=== PATIENT | male | born 1965 | race Caucasian/White ===

== ENCOUNTER 2020-12-01 13:26 | Inpatient (IN) | payer OTHER ==
[~2020-12-01] VITALS: Ht 172.7 cm; Wt 100.9 kg
--- NOTE | ~2020-12-01 | EMS ---
[facility] [address] [place] [address] EMS Patient Care Report Name: DARELL KNIGHT Room #: REG FARTUN Marcum#: [id number] Admission: 12/01/20 Attend Phys: Discharge: Date of : 63 Report #: [id number] THIS REPORT FOR: //name// Report Transmitted: 12/01/2020 20:47 EMS Care Summary [facility] MED-ACT Incident [id number] @ 12/01/2020 12:35 Incident Location [address] [address] Patient DARELL KNIGHT Male, 55 Years 1965 Patient Address [address] [place] [address] [place] [address] Patient History Chronic Obstructive Pulmonary Disease (COPD),Diabetes,Atrial Fibrillation,Novel Coronavirus (COVID-19), Patient Allergies No known allergies, Patient Medications Insulin, Apixaban, Metformin, Amiodarone, Acetaminophen, Glucagon, Ascorbic Acid, Chief Complaint Hypoxia Disposition Transported No Lights/[place] Dispatch Reason Sick Person Transported To [facility] Narrative Dispatched to C1 Sick Ill Subject. Upon our arrival, patient was noted laying [facility] [address] [place] [address] EMS Patient Care Report Name: DARELL KNIGHT Room #: REG FARTUN Marcum#: [id number] Admission: 12/01/20 Attend Phys: Discharge: Date of : 63 Report #: [id number] in Semi-Fowlers in facility bed. Patient is a trach patient on a vent. He is alert, but is unable to speak, so it's unknown his orientation. He is looking at EMS and facility staff. Patient is on a vent and RT reports that the rate is set to 30. Patient looks pale and is normal to the touch and dry. Patient has no radials, but also has a lot of peripheral edema. Patient has a strong carotid. Staff report: Patient has a history of COPD and ARDS prior to Covid. Patient had a trach and was on a vent while in the hospital at [place]. He was then sent to this facility after being discharged from the hospital. Patient would decompensate in the hospital, but would always stabilize. Staff reported that they tried to do different treatment yesterday and the doctor altered some medications, but it didn't help. Staff reports that he started to decompensate again this morning and every time they move him, "he starts to crash." When asked what that meant, she responded that, "he just crashes." Staff reported that they wanted him sent out in order to receive a higher level of care. They also report patient has MRSA. It wasn't until later at the hospital that of patient reported to road freight firer that they took his trach out and that's why he decompensated. Physical and PMH obtained and as documented. Patient is moved via total lift from facility bed to cot. Vent settings are written down in order to be given to the hospital staff. Patient is moved very carefully due to his chest tube, and him still being connected to the vent. Once he is moved, vitals are obtained. Vent is taken off and it is replaced with an ETCO2 filter line and BVM. Patient is bagged at an elevated rate due to a high CO2 and his respiratory rate being 30 on the vent. Patient is secured with straps plus rails. Cot wheeled to ambulance and secured. Well Logger and rider are taken from S47. Prior to departure, another full set of vitals are obtained. It is discussed amongst EMS personnel if we want to have even more personnel, but due to stable vitals and patient maintaining a consistent SPO2, transport is decided as the next step. Patient becomes more lethargic. Pads are applied as a precaution. Patient maintains a strong carotid. He also maintains a corneal reflex throughout the call and can answer most yes or no questions. During transport, patient reports that he does have pain and when asked if he has chest pain he shakes his head yes. When asked if it is new, he also shakes his head yes. 12 Lead performed. Patient's blood pressure drops compared to the reading at the facility. Patient has a CICC placed and due to EMS not being familiar with the IV ports and patient having inadequate vascular access, fluid resuscitation is withheld. [facility] contacted via radio. Cot wheeled to ER Room 8 where patient is moved via total lift. Report given to two RN's and signatures obtained due to patient not having any motor tone. Initial Vitals @12:54P: 79,SpO2: 80, @12:47P: 78,BP: 101/65,SpO2: 91, @13:14P: 82,EtCO2: 44,SpO2: 79, @13:09P: 81,BP: 91/57,EtCO2: 43,SpO2: 83, [facility] [address] [place] [address] EMS Patient Care Report Name: DARELL KNIGHT Room #: REG FARTUN Marcum#: [id number] Admission: 09/23/21 Attend Phys: Discharge: Date of : 63 Report #: [id number] @13:13P: 81,EtCO2: 47,SpO2: 79,WI Suspected: false @12:55P: 79,EtCO2: 48,SpO2: 66, @13:01P: 78,R: 24,EtCO2: 50,SpO2: 75, @12:59P: 75,R: 22,EtCO2: 56,SpO2: 75, @13:06P: 83,R: 30,BP: 84/53,EtCO2: 45,SpO2: 83, @13:14R: 29,BP: 92/51,EtCO2: 41,SpO2: 79, @13:15P: 81,R: 30,EtCO2: 46,SpO2: 79, @13:03P: 83,R: 22,EtCO2: 51,SpO2: 78, @13:05P: 86,R: 21,Pain: 4/10,Temp: 98.9F,EtCO2: 47,SpO2: 78, Impression Respiratory Failure Procedures @13:1312-Lead ECGResponse: UnchangedSucceeded@12:45Surgical Mask on Patient Timeline 12:32,Call Received 12:32,Psap Call 12:35,Dispatched 12:35,En Route 12:41,On Scene 12:44,At Patient 12:45,Surgical Mask on Patient, 12:47,BP: 101/65 M,PULSE: 78,RR: R,SPO2: 91 Ox,ETCO2: ,BG: ,PAIN: ,GCS: , 12:54,BP: / M,PULSE: 79,RR: R,SPO2: 80 Ox,ETCO2: ,BG: ,PAIN: ,GCS: , 12:55,BP: / M,PULSE: 79,RR: R,SPO2: 66 Ox,ETCO2: 48 ,BG: ,PAIN: ,GCS: , 12:59,BP: / M,PULSE: 75,RR: 22 R,SPO2: 75 Ox,ETCO2: 56 ,BG: ,PAIN: ,GCS: , 13:01,BP: / M,PULSE: 78,RR: 24 R,SPO2: 75 Ox,ETCO2: 50 ,BG: ,PAIN: ,GCS: , 13:03,BP: / M,PULSE: 83,RR: 22 R,SPO2: 78 Ox,ETCO2: 51 ,BG: ,PAIN: ,GCS: , 13:05,BP: / M,PULSE: 86,RR: 21 R,SPO2: 78 Ox,ETCO2: 47 ,BG: ,PAIN: 4,GCS: , 13:06,Depart Scene 13:06,BP: 84/53 M,PULSE: 83,RR: 30 R,SPO2: 83 Ox,ETCO2: 45 ,BG: ,PAIN: ,GCS: , 13:09,BP: 91/57 M,PULSE: 81,RR: R,SPO2: 83 Ox,ETCO2: 43 ,BG: ,PAIN: ,GCS: , 13:13,12-Lead ECG,Response: UnchangedSucceeded, 13:13,BP: / M,PULSE: 81,RR: R,SPO2: 79 Ox,ETCO2: 47 ,BG: ,PAIN: ,GCS: , 13:14,BP: / M,PULSE: 82,RR: R,SPO2: 79 Ox,ETCO2: 44 ,BG: ,PAIN: ,GCS: , 13:14,BP: 92/51 M,PULSE: ,RR: 29 R,SPO2: 79 Ox,ETCO2: 41 ,BG: ,PAIN: ,GCS: , 13:15,At Destination 13:15,BP: / M,PULSE: 81,RR: 30 R,SPO2: 79 Ox,ETCO2: 46 ,BG: ,PAIN: ,GCS: , 13:38,Call Closed Disclaimer v1.1 Copyright 2020 [employer] This EMS Care Summary contains data elements from the applicable legal record [address] [address] EMS Patient Care Report Name: DARELL KNIGHT Room #: REG FARTUN Marcum#: [id number] Admission: 12/01/20 Attend Phys: Discharge: Date of : 63 Report #: [id number] (which may be displayed differently). It is designed to provide pertinent information for the following purposes: continuity of care, clinical quality, and state data reporting. The complete legal record is available to ED staff and administrators of the receiving hospital in [facility]'s Patient Tracker. All data is provided "as is."
[~2020-12-01 13:26] MED LIST: ACETYLCYST200 MG/1 M INH; ADVAIR 100-501 EACH INH; ANORO ELLIPTA1 EACH INH; DILTIAZEM ER180 M2 PO; ELIQUIS5 MG PO; HUMALOG100 UNIT/1 SUBQ; HYDROCODON-ACE1 EAC7 PO; JANUMET 50-1,01 EACH PO; LANTUS SUBQ; LISINOPRIL-HCT1 EACH PO; LOPRESSOR50 PERTUBE; OMEPRAZOLE 20 M20 M1 PO; PACERONE 200 M200 M1 PERTUBE; PROSCAR 5MG TABL5 MG PO; ROXICODONE5 M2 PO; SINGULAIR 10 MG10 M1 PO; VITAMIN C1000 MG PO; XARELTO20 MG PO
[2020-12-01 13:28] VITALS: BP 97/50
[2020-12-01 14:26] LABS: BE(vivo) 3.3 mmol/L (-2 to +3); HCO3 31.6 mmol/L (22.0-26.0); PO2 75.2 mmHg (80.0-100.0); sO2 92.7 % (92.0-98.0)
[2020-12-01 14:27] LABS: PCO2 70.2 mmHg (35.0-45.0); pH 7.271 (7.360-7.450)
[2020-12-01 15:24] LABS: ABSOLUTE NEUTROPHILS 7.3 thou/uL (1.4-8.2); BASOPHILS 0.1 % (0.0-2.0); HEMATOCRIT 27.1 % (42.0-52.0); HEMOGLOBIN 9.1 gm/dL (14.0-18.0); LYMPHOCYTES 1.6 % (24.0-44.0); MCHC 33.6 g/dL (28.0-37.0); MCV 89.4 fL (80.0-100.0); MONOCYTES 8.9 % (1.0-8.0); PLATELET COUNT 200 thou/uL (150-400); POLYS 89.4 % (36.0-66.0); RBC 3.03 mil/uL (4.50-6.00); RDW 17.3 % (10.5-14.5); WBC 8.2 thou/uL (4.0-11.0)
[2020-12-01 15:43] LABS: ALBUMIN 1.8 g/dL (3.4-5.0); CALCIUM 8.5 mg/dL (8.5-10.1); CREATININE 0.6 mg/dL (0.7-1.3); TOTAL BILIRUBIN 0.3 mg/dL (0.2-1.0); TOTAL PROTEIN 6.3 g/dL (6.4-8.2)
[2020-12-01 15:46] LABS: POTASSIUM 6.3 mmol/L (3.5-5.1)
[2020-12-01 17:25] LABS: URINE BILIRUBIN NEGATIVE (Negative); URINE BLOOD TRACE (Negative); URINE CLARITY CLOUDY; URINE COLOR YELLOW; URINE GLUCOSE-RANDOM* NEGATIVE (Negative); URINE KETONES TRACE (Negative); URINE LEUKOCYTES-REFLEX TRACE (Negative); URINE NITRITE-REFLEX NEGATIVE (Negative); URINE PROTEIN (DIPSTICK) 1+ (Negative); URINE SPECIFIC GRAVITY >= 1.030 (1.005-1.035); URINE UROBILINOGEN 0.2 E.U./dl (0.2-1.0)
[2020-12-01 17:51] LABS: SQUAMOUS 0-3 Few /LPF (0-3)
[2020-12-01 17:52] LABS: BACTERIA-REFLEX >30 Many /HPF (None Seen); CALCIUM OXALATE >10 Many /LPF (None Seen); URINE RBC 3-10 Few /HPF (NONE SEEN); URINE WBC-REFLEX 0-5 Rare /HPF (0-5); YEAST-REFLEX Present (None Seen)
[2020-12-01 23:29] VITALS: BP 102/50
[2020-12-01 23:56] VITALS: BP 102/50
[2020-12-02] VITALS (98 sets, daily range): BP systolic 46–244; BP diastolic 17–216
[2020-12-02 01:36] LABS: HEMATOCRIT 27.8 % (42.0-52.0); HEMOGLOBIN 8.7 gm/dL (14.0-18.0); MCH 28.6 pg (26.0-34.0); MCHC 31.5 g/dL (28.0-37.0); MCV 90.7 fL (80.0-100.0); RBC 3.06 mil/uL (4.50-6.00); RDW 17.9 % (10.5-14.5); WBC 16.2 thou/uL (4.0-11.0)
[2020-12-02 01:38] LABS: BE(vivo) -6.9 mmol/L (-2 to +3); HCO3 22.6 mmol/L (22.0-26.0); sO2 82.6 % (92.0-98.0)
[2020-12-02 01:39] LABS: PCO2 68.1 mmHg (35.0-45.0); pH 7.138 (7.360-7.450)
[2020-12-02 02:09] LABS: ALBUMIN 1.7 g/dL (3.4-5.0); CALCIUM 8.4 mg/dL (8.5-10.1); CREATININE 1.1 mg/dL (0.7-1.3); TOTAL BILIRUBIN 0.3 mg/dL (0.2-1.0); TOTAL PROTEIN 6.5 g/dL (6.4-8.2)
[2020-12-02 02:10] LABS: POTASSIUM 7.2 mmol/L (3.5-5.1)
--- NOTE | 2020-12-02 02:42 | NUR ---
SHORTLY AFTER PATIENT BROUGHT TO THE UNIT HE STARTED DEVELOPING HYPOXIA. TRACH POSSIBLY DISLODGED WHEN PATIENT TRANSFERRED TO BED FROM ER CART AND TURNED TO REMOVE BEDDING AND ASSESS PATIENTS POSTERIOR. RAPID RESPONSE INITIATED DUE TO POSSIBLE OBSTRUCTION AND INABILITY TO SUCTION OR PROPERLY VENTILATE PATIENT. VERY SHORTLY AFTER RAPID RESPONSE CALLED PATIENT STARTED TURNING BLUE AND SEVER BRADYCARDIA NOTED. CODE BLUE ACTIVATED DUE TO PATIENT NOT BREATHING.
[2020-12-02 03:06] LABS: BE(vivo) -0.7 mmol/L (-2 to +3); PO2 65.9 mmHg (80.0-100.0); sO2 90.9 % (92.0-98.0)
[2020-12-02 03:08] LABS: pH 7.308 (7.360-7.450)
[2020-12-02 04:50] LABS: HEMATOCRIT 25.8 % (42.0-52.0); HEMOGLOBIN 8.3 gm/dL (14.0-18.0); MCH 29.3 pg (26.0-34.0); MCHC 32.4 g/dL (28.0-37.0); MCV 90.7 fL (80.0-100.0); PLATELET COUNT 315 thou/uL (150-400); RBC 2.84 mil/uL (4.50-6.00); WBC 18.4 thou/uL (4.0-11.0)
[2020-12-02 05:39] LABS: ALBUMIN 1.6 g/dL (3.4-5.0); CREATININE 0.9 mg/dL (0.7-1.3); TOTAL BILIRUBIN 0.5 mg/dL (0.2-1.0); TOTAL PROTEIN 6.2 g/dL (6.4-8.2)
[2020-12-02 05:46] LABS: POTASSIUM 6.9 mmol/L (3.5-5.1)
[2020-12-02 06:20] LABS: ABSOLUTE NEUTROPHILS 17.7 thou/uL (1.4-8.2); ANISOCYTOSIS 1+; PLATELET ESTIMATE NORMAL; POIKILOCYTOSIS 1+
--- NOTE | 2020-12-02 07:25 | NUR ---
ORDER FOR EVAL AND TREAT HOWEVER Pt CODED LAST NIGHT. WILL PLACE ON HOLD AND AWAIT NEW ORDERS WHEN APPROPRIATE
--- NOTE | 2020-12-02 07:25 | NUR ---
ELECTRIC FURNACE OPERATOR called at 0105 for decreased O2 sats, immediately changed to a code blue. See code sheet.
--- NOTE | 2020-12-02 07:32 | EKG ---
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
--- NOTE | 2020-12-02 09:40 | NUR ---
When able to resume enteral nutrition via PEG, recommend vital HP at 60ml/hr. If water flushes started, add 1 packet beneprotein in 240ml water every 6hr
--- NOTE | 2020-12-02 10:52 | NUR ---
Spoke to Olena Shook, patient's , and updated on patient condition. Patient is to go to surgery this afternoon.
[2020-12-02 11:35] LABS: BE(vivo) 2.8 mmol/L (-2 to +3); HCO3 26.6 mmol/L (22.0-26.0); pH 7.474 (7.360-7.450); sO2 97.8 % (92.0-98.0)
[2020-12-02 12:11] LABS: CALCIUM 7.8 mg/dL (8.5-10.1)
[2020-12-02 12:25] LABS: POTASSIUM 6.1 mmol/L (3.5-5.1)
--- NOTE | 2020-12-02 14:10 | NUR ---
Patient sent to OR via cart and vent. Bedside report given to anesthesia and RN. Patient's at bedside at the time patient was taken back.
--- NOTE | 2020-12-02 14:30 | NUR ---
Chart review. Discussed during am unit rounds and los. He from [facility], prior to that he was at [facility] and then before that at home wit rigo, [facility], # [phone]. He has trach/peg and wound. going to or today. Cm called to talk with rigo and she wanted to meet. cm spoke with her, education on dcp. He will not be going back to [facility], you have time to get him to [facility] or he will come home and will get equip and care in the home for him. told him not to drive to [place] to see his dad who was dying from covid because he has copd and not vaccinated and would get sick. his dad and reza came back, got pulled over in [place] while driving to the hospital and ambulance ended taking him to [facility]. only been at [facility] for 6 days and will not be going back per rigo. referral sent to [facility].
--- NOTE | 2020-12-02 15:26 | NUR ---
Patient's rigo updated on patient condition s/p surgery
--- NOTE | 2020-12-02 16:12 | NUR ---
Spoke to Dr. Youssef re: clogged PEG tube. Was able to flush PEG, with some difficulty prior to patient going to surgery, however, have not been able to do so since he came back. Urine output decreased again, 1L order per Dr. Youssef.
[2020-12-02 17:50] LABS: ABSOLUTE NEUTROPHILS 3.7 thou/uL (1.4-8.2); BASOPHILS 0.1 % (0.0-2.0); LYMPHOCYTES 5.3 % (24.0-44.0); MCH 29.2 pg (26.0-34.0); MCV 88.5 fL (80.0-100.0); MONOCYTES 5.2 % (1.0-8.0); POLYS 89.4 % (36.0-66.0); RDW 17.3 % (10.5-14.5); WBC 4.2 thou/uL (4.0-11.0)
[2020-12-02 17:54] LABS: HEMATOCRIT 19.5 % (42.0-52.0); HEMOGLOBIN 6.4 gm/dL (14.0-18.0)
[2020-12-02 17:55] LABS: PLATELET COUNT 125 thou/uL (150-400)
[2020-12-02 18:02] LABS: CALCIUM 7.8 mg/dL (8.5-10.1); POTASSIUM 5.8 mmol/L (3.5-5.1)
[2020-12-02 18:08] LABS: ALBUMIN 1.4 g/dL (3.4-5.0); TOTAL BILIRUBIN 0.4 mg/dL (0.2-1.0); TOTAL PROTEIN 5.6 g/dL (6.4-8.2)
--- NOTE | 2020-12-02 19:00 | NUR ---
Patient's Olena updated on patient condition and blood consent obtained via phone.
--- NOTE | 2020-12-02 23:42 | NUR ---
Patient had an episode of desaturation down to the 50's. Patients blood pressure extremely sensitive and has been fluctuating immensely. RN discussed with respiratory and Dr. Murillo multiple times. Patient started on Dopamine and vasopressin. Increased PEEP. After bagging and waiting out, patient seemed to recover. RN called , Olena Shook to discuss event. RN will continue to monitor.
[2020-12-03] VITALS (90 sets, daily range): BP systolic 67–154; BP diastolic 36–86
[2020-12-03 04:56] LABS: ABSOLUTE NEUTROPHILS 8.2 thou/uL (1.4-8.2); BASOPHILS 0.1 % (0.0-2.0); HEMATOCRIT 23.2 % (42.0-52.0); HEMOGLOBIN 7.8 gm/dL (14.0-18.0); LYMPHOCYTES 2.6 % (24.0-44.0); MCH 30.3 pg (26.0-34.0); MCHC 33.9 g/dL (28.0-37.0); MCV 89.6 fL (80.0-100.0); MONOCYTES 5.9 % (1.0-8.0); PLATELET COUNT 193 thou/uL (150-400); POLYS 91.4 % (36.0-66.0); RBC 2.59 mil/uL (4.50-6.00); RDW 16.8 % (10.5-14.5); WBC 8.9 thou/uL (4.0-11.0)
[2020-12-03 05:17] LABS: CALCIUM 7.3 mg/dL (8.5-10.1); MAGNESIUM 2.1 mg/dL (1.8-2.4); POTASSIUM 5.7 mmol/L (3.5-5.1)
--- NOTE | 2020-12-03 06:19 | NUR ---
This RN spoke with Olena, at 0600 regarding patient status. Updated on treatment and condition.
[2020-12-03 11:53] LABS: BE(vivo) -5.4 mmol/L (-2 to +3); HCO3 20.8 mmol/L (22.0-26.0); PCO2 43.5 mmHg (35.0-45.0); PO2 79.2 mmHg (80.0-100.0); pH 7.297 (7.360-7.450); sO2 94.5 % (92.0-98.0)
--- NOTE | 2020-12-03 19:33 | NUR ---
Patient's at bedside most of the day. Was able to speak to Dr. Figueroa when he came in. Dr. Figueroa was able to unclog PEG tube and tube feeds were started. Also looked at trach and notified of increased water to bivona cuff due to leak. He was ok with adding more water to balloon as needed. Chest tube to stay in at this time. Dr. Murillo notified of decreasing urine output this afternoon. Order for x1 Lasix received and given.
--- NOTE | 2020-12-03 20:37 | NUR ---
ASSUMED CARE OF PATIENT AT 1899. DISCUSSED PAIN MANAGEMEN OPTIONS, WELL HIS DESIRE TO KNOW WHAT MEDICATIONS HE IS RECIEVING, AND WHEN. HE ALSO REQUESTED TO FACETIME WITH . THIS RN CALLED A 2037, DISCUSSING PAIN MANAGEMENT OPTIONS WELL. ONE TIME ORDER RECIEVED FOR TORADOL. WILL CONTINUE TO MONITOR FOR OPTIMAL PAIN MANAGEMENT.
[2020-12-04] VITALS (96 sets, daily range): BP systolic 61–165; BP diastolic 33–81
[2020-12-04 03:08] LABS: BE(vivo) -9.5 mmol/L (-2 to +3); HCO3 19.2 mmol/L (22.0-26.0); PCO2 56.4 mmHg (35.0-45.0); PO2 75.5 mmHg (80.0-100.0); sO2 90.6 % (92.0-98.0)
[2020-12-04 03:09] LABS: pH 7.151 (7.360-7.450)
[2020-12-04 03:28] LABS: HEMOGLOBIN 8.5 gm/dL (14.0-18.0); MCH 28.9 pg (26.0-34.0); MCHC 31.3 g/dL (28.0-37.0); MCV 92.1 fL (80.0-100.0); RBC 2.93 mil/uL (4.50-6.00); RDW 17.1 % (10.5-14.5); WBC 19.5 thou/uL (4.0-11.0)
[2020-12-04 03:39] LABS: ALBUMIN 1.7 g/dL (3.4-5.0); CALCIUM 8.1 mg/dL (8.5-10.1); CREATININE 1.2 mg/dL (0.7-1.3); PLATELET COUNT 309 thou/uL (150-400); POTASSIUM 5.8 mmol/L (3.5-5.1); TOTAL BILIRUBIN 0.3 mg/dL (0.2-1.0); TOTAL PROTEIN 5.3 g/dL (6.4-8.2)
[2020-12-04 05:35] LABS: BE(vivo) -7.8 mmol/L (-2 to +3); HCO3 18.9 mmol/L (22.0-26.0); PCO2 43.5 mmHg (35.0-45.0); PO2 68.1 mmHg (80.0-100.0); pH 7.256 (7.360-7.450); sO2 90.8 % (92.0-98.0)
[2020-12-04 06:37] LABS: ABSOLUTE NEUTROPHILS 18.5 thou/uL (1.4-8.2); ANISOCYTOSIS 1+
--- NOTE | 2020-12-04 09:31 | HC ---
[facility] [place] [address] CONSULTATION Name: DARELL KNIGHT Room #: 239-P ADM IN M.R.#: [id number] Admission: 12/02/20 Attend Phys: Regis Youssef MD Discharge: Date of : 63 Report #: [id number] THIS REPORT FOR: cc: YUMIKO - Coby family physician/PCP YUMIKO - No family physician/PCP Tate Woods MD ~ DATE OF SERVICE: 12/03/2020 WOUND CARE CONSULTATION NOTE REASON FOR CONSULTATION: Sacral stage IV pressure sore in a patient with respiratory failure with tracheostomy, on ventilator secondary to COVID-19 pneumonia; diabetes mellitus type 2 and severe protein-calorie malnutrition. HISTORY OF PRESENT ILLNESS: The patient is a 55-year-old gentleman who has been severely ill with COVID-19 pneumonia. He has been hospitalized at [facility] from 10/13/2020 through 11/25/2020 for respiratory failure with COVID-19 pneumonia, ARDS, right pneumothorax, sepsis, atrial fibrillation. The patient was treated for a sacral decubitus ulcer, I believe at [facility] by debridement by Dr. Ger Saeed. He was then recovering at [facility]. He was transferred to [facility] due to worsening respiratory failure. The patient was taken to the operating room yesterday by Dr. Ger Saeed for placement of tracheostomy. The patient also suffered a cardiac arrest yesterday and was resuscitated. At some point in his care, the patient had a negative pressure wound therapy, wound VAC placed on his sacral stage IV pressure ulcer after debridement. Apparently, wound VAC has not been connected to suction for the past 24 hours related to his cardiac arrest. Wound care was consulted at this time. MEDICAL HISTORY: COVID-19 pneumonia; respiratory failure, now with tracheostomy; diabetes mellitus type 2; acute toxic metabolic encephalopathy; severe protein-calorie malnutrition; COPD; atrial fibrillation. ALLERGIES: None. MEDICATIONS: See chart. REVIEW OF SYSTEMS: Not obtainable. PHYSICAL EXAMINATION: GENERAL: Shows a chronically ill-appearing middle-aged man, with respiratory support on the ventilator via tracheostomy. He is alert and arousable. Mucous membranes are moist. ABDOMEN: Soft. EXTREMITIES: No lower extremity wound. BACK: Examination of the patient's back shows a wound VAC with a seal, but not [address] [address] CONSULTATION Name: DARELL KNIGHT Room #: 239-P [facility] IN M.R.#: [id number] Admission: 12/02/20 Attend Phys: Regis Youssef MD Discharge: Date of : 63 Report #: [id number] attached to suction. Wound VAC seal and tenorio foam are removed. This reveals a large wound bilaterally over the sacral area measuring approximately 18 cm x 10 cm. This appears to be stage IV centrally with exposed adipose tissue bilaterally with some surface necrosis. This appears to have been previously debrided. Wound dressed. There is some foul odor due to stasis with the wound VAC off suction. A quarter-strength Dakin's Kerlix dressing was placed, will also do this twice a day. The patient has some excoriation to the skin of the buttock. Barrier cream was placed. He will require twice daily quarter-strength Dakin's dressing changes, wound VAC to be reinstituted at a later time. IMPRESSION: 1. Respiratory failure secondary to COVID-19 pneumonia. 2. Respiratory failure with tracheostomy, on ventilator. 3. Chronic obstructive pulmonary disease. 4. Atrial fibrillation. 5. Diabetes mellitus type 2 with skin ulcer. 6. Encephalopathy. 7. Severe protein-calorie malnutrition. 8. Sacral stage IV pressure ulcer. PLAN: Current therapy will be quarter-strength Dakin's moist Kerlix dressing changes twice daily. Barrier cream to the excoriated skin of the buttocks. Offload with low air loss mattress. Once the wound was again cleaned, wound VAC may be able to be reinstituted. Wound care team will follow. Maximize nutrition. <ELECTRONICALLY SIGNED> By: Tate Woods MD 12/04/20 0931 0633 0703 Tate Woods MD /nt
--- NOTE | 2020-12-04 11:32 | EKG ---
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: STELLA : 1965 Requested By: José Luis Murillo Order Number: [id number] MD: Didier Frias Measurements Intervals [place] Rate: 117 P: 57 DE: 188 QRS: 17 QRSD: 126 T: -88 QT: 329 QTc: 459 Interpretive Statements Sinus tachycardia Right bundle branch block Nonspecific T abnormalities, lateral leads Compared to ECG 12/01/2020 13:41:10 Right bundle-branch block now present T-wave abnormality now present Sinus rhythm no longer present Electronically Signed On 12-04-2020 11:32:41 CDT by Didier Frias [email or web address] <ELECTRONICALLY SIGNED> By: Didier Frias MD, [facility] 12/04/20 1132 025 025 Didier Frias MD, [facility] /EPI
--- NOTE | 2020-12-04 19:15 | NUR ---
tolerating vent, titrated down to fio2-60%, tired, resting quietly throughout day. at bedside providing support. titrating levophed down at sbp allows. minimal progress.
[2020-12-05] VITALS (73 sets, daily range): BP systolic 77–149; BP diastolic 44–104
[2020-12-05 04:33] LABS: PCO2 46.2 mmHg (35.0-45.0); PO2 75.8 mmHg (80.0-100.0); pH 7.232 (7.360-7.450); sO2 92.6 % (92.0-98.0)
--- NOTE | 2020-12-05 06:00 | NUR ---
REMAINS TRACHED AND VENTED 60 % FIO2 SEDATED WITH FENTANLY AND PRECEDEX A VERY DELIGHTFUL GENTLEMAN. EXTREMITIES FLACCID. PROGRESSING TOWARD GOALS
[2020-12-05 06:35] LABS: HEMATOCRIT 23.4 % (42.0-52.0); HEMOGLOBIN 7.6 gm/dL (14.0-18.0); MCH 29.7 pg (26.0-34.0); MCHC 32.7 g/dL (28.0-37.0); RBC 2.57 mil/uL (4.50-6.00); RDW 17.3 % (10.5-14.5); WBC 9.1 thou/uL (4.0-11.0)
[2020-12-05 06:38] LABS: PLATELET COUNT 151 thou/uL (150-400)
--- NOTE | 2020-12-05 10:30 | NUR ---
Olena, present this am. updated on all cares including any changes or progress. she was talking with pt and he responding by slight nodding, moving his eyes in response. after his am bath, he was sleepy and rested intermittently. she provided excellent support to pt.
[2020-12-05 10:52] LABS: ALBUMIN 1.9 g/dL (3.4-5.0); CALCIUM 7.8 mg/dL (8.5-10.1); CREATININE 1.2 mg/dL (0.7-1.3); POTASSIUM 5.2 mmol/L (3.5-5.1); TOTAL BILIRUBIN 0.2 mg/dL (0.2-1.0)
[2020-12-05 11:11] LABS: ABSOLUTE NEUTROPHILS 8.2 thou/uL (1.4-8.2); METAMYELOCYTES 2 %
[2020-12-05 11:12] LABS: ANISOCYTOSIS 1+
--- NOTE | 2020-12-05 15:51 | NUR ---
Chart review, cont to required trach and peg with vent support, nutritional support. cont to visit daily and has been provided updates. Faxed updates to [facility] to send to insurance company. Will need auth for dc when medically stable for dc.
[2020-12-06] VITALS (77 sets, daily range): BP systolic 92–171; BP diastolic 40–88
[2020-12-06 05:19] LABS: HEMATOCRIT 23.1 % (42.0-52.0); HEMOGLOBIN 7.5 gm/dL (14.0-18.0); MCH 29.5 pg (26.0-34.0); MCHC 32.5 g/dL (28.0-37.0); MCV 90.9 fL (80.0-100.0); RBC 2.54 mil/uL (4.50-6.00); RDW 17.1 % (10.5-14.5); WBC 6.2 thou/uL (4.0-11.0)
[2020-12-06 05:35] LABS: CALCIUM 7.7 mg/dL (8.5-10.1); CREATININE 0.9 mg/dL (0.7-1.3); POTASSIUM 4.6 mmol/L (3.5-5.1)
--- NOTE | 2020-12-06 19:15 | NUR ---
on cpap trial rr- 20-25 with resp even and unlabored. portable sa02 monitor consistently reading 97-99% throughout shift.
[2020-12-07] VITALS (45 sets, daily range): BP systolic 102–170; BP diastolic 58–80
[2020-12-07 05:17] LABS: BE(vivo) -1.8 mmol/L (-2 to +3); HCO3 23.6 mmol/L (22.0-26.0); PCO2 42.6 mmHg (35.0-45.0); PO2 86.8 mmHg (80.0-100.0); pH 7.361 (7.360-7.450); sO2 96.3 % (92.0-98.0)
[2020-12-07 06:14] LABS: HEMOGLOBIN 6.9 gm/dL (14.0-18.0); RBC 2.33 mil/uL (4.50-6.00)
[2020-12-07 06:15] LABS: MCH 29.6 pg (26.0-34.0); MCHC 32.9 g/dL (28.0-37.0); MCV 90.1 fL (80.0-100.0); RDW 16.9 % (10.5-14.5); WBC 4.8 thou/uL (4.0-11.0)
[2020-12-07 06:46] LABS: CALCIUM 8.2 mg/dL (8.5-10.1); CREATININE 0.5 mg/dL (0.7-1.3)
--- NOTE | 2020-12-07 14:53 | NUR ---
voice message from [facility], denial for [facility], to acute for [facility] is why was denied, p2p needs to be completed by 12/08/20 11 am, # [phone]. Passed on information to Dr dowling, ID # [id number], 63 and phone number [phone]. Amilcar went to debridement of wounds this am. Will cont follow as needed for dc needs.
[2020-12-07 22:03] LABS: HEMATOCRIT 26.8 % (42.0-52.0); HEMOGLOBIN 8.5 gm/dL (14.0-18.0)
[2020-12-08] VITALS (73 sets, daily range): BP systolic 105–150; BP diastolic 35–73
[2020-12-08 05:35] LABS: HEMATOCRIT 27.3 % (42.0-52.0); MCH 30.1 pg (26.0-34.0); MCV 91.4 fL (80.0-100.0); RBC 2.98 mil/uL (4.50-6.00); RDW 16.4 % (10.5-14.5); WBC 15.7 thou/uL (4.0-11.0)
[2020-12-08 05:48] LABS: CALCIUM 8.1 mg/dL (8.5-10.1); CREATININE 0.4 mg/dL (0.7-1.3)
--- NOTE | 2020-12-08 11:08 | NUR ---
Dr. Figueroa at bedside, removed R sided chest tube. No complications.
--- NOTE | 2020-12-08 11:20 | NUR ---
Discussed during los and unit rounds. Janae passed on updates to [facility]. Hospitalist has called 2 x to [facility] to completed p[facility]p for [facility] and no return call back as of now. [facility] is going to reach out to [facility]. JANAE sent clinical updates to [facility] and [facility] called Dr dowling. Will cont following as needed. Janae spoke with his and patient, both agree with dcp.
--- NOTE | 2020-12-08 11:27 | NUR ---
at bedside, watching TV with patient/holding hands. Happy with pt progress i.e. chest tube removal, complexion, vent settings. Hopeful to transfer to [facility] later today.
[2020-12-09] VITALS (24 sets, daily range): BP systolic 112–134; BP diastolic 54–68
--- NOTE | 2020-12-09 03:22 | NUR ---
ASSUMED CARE OF PATIENT AT 1900. LEVOPHED GTT REMAINS OFF. FREQUENTLY ASKS FOR PAIN MEDS. HAS NOT SLEPT TONIGHT. WOUND CARE DONE, FULL BATH GIVEN. TOLERATED WELL. PLANS FOR LTAC WHEN BED IS AVAILABLE. PROGRESSING TOWARDS POC GOALS.
[2020-12-09 05:01] LABS: HEMATOCRIT 24.9 % (42.0-52.0); HEMOGLOBIN 8.1 gm/dL (14.0-18.0); MCH 29.8 pg (26.0-34.0); MCHC 32.5 g/dL (28.0-37.0); MCV 91.6 fL (80.0-100.0); RBC 2.71 mil/uL (4.50-6.00); RDW 16.7 % (10.5-14.5); WBC 14.4 thou/uL (4.0-11.0)
[2020-12-09 06:10] LABS: CALCIUM 7.8 mg/dL (8.5-10.1); CREATININE 0.3 mg/dL (0.7-1.3); POTASSIUM 4.1 mmol/L (3.5-5.1)
--- NOTE | 2020-12-09 15:07 | PATH ---
[facility] [address] [place] [address] PATHOLOGY RPT PROCEDURE Name: AMILCAR KNIGHT Room #: 243-P ADM IN M.R.#: [id number] Admission: 12/02/20 Date of : 63 Discharge: Report #: [id number] Path Case #: [id number] [facility] Accession Number: [id number] . 01 Material submitted: . PART A: coccyx - BONE COCCYX PART B: sacrum - SACRAL TISSUE . 01 Clinical history: . DEBRIDEMENT SACRAL WOUND RESP FAILURE . 02 Diagnosis: A. Bone, bone coccyx, debridement: - Fragments of reactive bone adjacent to cartilaginous tissue and dense fibrous tissue with inflammation and extensive fibrinoid degeneration, clinical history of sacral wound. . B. Soft tissue, sacral tissue, debridement: - Fragments of fibroadipose and fibrovascular connective tissue with extensive necrosis as well as degeneration, history of sacral wound. (IUV:manuel; 12/09/2020) QMS 12/09/2020 1441 Local . 02 Electronically signed: . Noemy Toney MD, Pathologist NPI- [id number] . 01 Gross description: . A. Received in formalin labeled "Amilcar Knight, bone coccyx" is a fragment of richard-brown bone and scant detached soft tissue measuring 1.0 x 0.8 x 0.6 cm. The specimen is bisected and submitted in cassette A1 following immuno-decalcification. ([facility]; 12/08/2020) . B. The specimen is received in formalin, labeled " Amilcar Knight, sacral tissue". It consists of a richard-yellow, irregular lobulated soft tissue fragment measuring 12.5 x 8.5 x 4.0 cm. The external surface is inked black. Sectioning reveals richard-yellow, focally hemorrhagic lobulated cut surfaces. Drill Setup Operator sections are submitted in B1. ([facility]; 12/08/2020) [facility] 12/09/2020 1440 Local . 02 Pathologist provided ICD-10: S31.000A . 02 [place] [address] PATHOLOGY RPT PROCEDURE Name: AMILCAR KNIGHT Room #: 243-P [facility] IN M.R.#: [id number] Admission: 12/02/20 Date of : 63 Discharge: Report #: [id number] Path Case #: [id number] Specimen Comment: A courtesy copy of this report has been sent to [phone] Specimen Comment: [phone] Specimen Comment: Report sent to / DR VASQUES Performed at: [address], [place], [place] [id number] MD Pramod Sosa MD Phone: [phone] Performed at: [address] [id number] MD Noemy Toney MD Phone: [phone]
--- NOTE | 2020-12-09 16:20 | NUR ---
P2P denied for LTAC from [employer] and will need to re request auth for LTAC on saturday per [facility] and [employer] insurance. No anticipated dc over the weekend, will cont following as needed for dc needs.
--- NOTE | 2020-12-09 18:40 | NUR ---
ASSUMEED PATIENT CARE AT 0700. A/O X3. TOLERATED ON VENT. COCCYX DRESSING CHANGED PER ORDER. PAIN MEDS GIVEN NEEDS. FMS FLASHED. NOTED LEEKING OF FMS. AFEBRILE, VSS. GENERLIZED EDEMA. NO RESIHAUL FROM PEG. TF IS RUNNING AT 50ML /H NOW. SLOWLY TOWARDS POC GOALS.
[2020-12-10] VITALS (24 sets, daily range): BP systolic 110–140; BP diastolic 51–67
[2020-12-10 05:08] LABS: HEMATOCRIT 23.6 % (42.0-52.0); HEMOGLOBIN 7.7 gm/dL (14.0-18.0); MCH 29.9 pg (26.0-34.0); MCHC 32.5 g/dL (28.0-37.0); MCV 92.2 fL (80.0-100.0); RBC 2.56 mil/uL (4.50-6.00); RDW 17.2 % (10.5-14.5); WBC 12.2 thou/uL (4.0-11.0)
[2020-12-10 05:28] LABS: CALCIUM 7.8 mg/dL (8.5-10.1); CREATININE 0.3 mg/dL (0.7-1.3); POTASSIUM 4.1 mmol/L (3.5-5.1)
--- NOTE | 2020-12-10 17:40 | NUR ---
RN ASSUMED PT'S CARE AT 0700AM, PT IS A&OX4 , PT CAN FOLLOW COMMANDS, PT IS ON TRACH ( T-TUBE) WITH VENTILAOR PC-AC MODE, PT'S O2SAT STAYS AT 93-97%, PT'S VS ARE STABLE, PT IS CONTINUING IV ABX,WOUND CARE AND PAIN MANAGEMENT , PT'S PAIN CAN CONTROL WITH FENTANYL IV DRIP @ 25MCG/HR, PT IS TOLERATIVE TUBE FEEDING @60ML/HR, PT'S FAMILY STAY AT PT'S BEDSIDE FOR 2HR , RN WILL REPORT TO NEXT SHIFT TO CONTINUE MONITOR PT.
[2020-12-11] VITALS (22 sets, daily range): BP systolic 128–164; BP diastolic 50–62
--- NOTE | 2020-12-11 03:28 | NUR ---
ASSUMED CARE OF PATIENT AT 1900. PAIN IS MORE CONTROLLED TONIGHT. PATIENT PARTICIPATING IN ROM EXERCISES WITH ARMS AND LEGS. WOUND CARE DONE CHARTED. DENIES NAUSEA OR ABDOMINAL PAIN, TUBE FEED IS AT GOAL. PLANS FOR COLOSTOMY ON SATURDAY. PROGRESSING TOWARDS POC GOALS.
[2020-12-11 04:52] LABS: CALCIUM 7.6 mg/dL (8.5-10.1); CREATININE 0.3 mg/dL (0.7-1.3); POTASSIUM 3.9 mmol/L (3.5-5.1)
[2020-12-11 10:04] LABS: MAGNESIUM 1.2 mg/dL (1.8-2.4)
--- NOTE | 2020-12-11 18:52 | NUR ---
RN ASSUMED PT'S CARE AT 0700AM, PT IS A&OX4, PT CAN FOLLOW COMMANDS, PT HAS TRACH , PT IS ON VENTILATOR PC-AC MPDE, PEEP 8.0, FIO2 40%, RR 20, PT'S O2SAT STAYS AT 93-98%, PT'S VS ARE STABLE, PT IS CONTINUING IV ABX , WOUND CARE AND PAIN MANAGEMENT, PT IS ON IV FENTANYL DRIP AT 25MCG /HR, PT'S PAIN HAS CONTROLED,PT IS GOING TO HAVE COLOSTOMY TOMORROW , PT'S HAS SIGNED THE CONSENT, PT 'S TUBE FEEDING WILL HOLD AFTER MN. PT NEEDS TOTAL CARE .
[2020-12-11 20:20] LABS: HEMATOCRIT 23.1 % (42.0-52.0); HEMOGLOBIN 7.6 gm/dL (14.0-18.0); MCH 29.8 pg (26.0-34.0); MCHC 32.9 g/dL (28.0-37.0); MCV 90.5 fL (80.0-100.0); RBC 2.55 mil/uL (4.50-6.00); WBC 10.7 thou/uL (4.0-11.0)
[2020-12-12] VITALS (26 sets, daily range): BP systolic 115–158; BP diastolic 48–70
--- NOTE | 2020-12-12 | NUR ---
TUBE FEEDING PLACED ON HOLD. PT IS NPOI NOW FOR SURGERY IN FOR COLOSTOMY.
[2020-12-12 05:08] LABS: BE(vivo) 8.6 mmol/L (-2 to +3); HCO3 31.3 mmol/L (22.0-26.0); PCO2 35.6 mmHg (35.0-45.0); PO2 79.3 mmHg (80.0-100.0); pH 7.562 (7.360-7.450); sO2 97.1 % (92.0-98.0)
[2020-12-12 05:33] LABS: HEMATOCRIT 23.8 % (42.0-52.0); HEMOGLOBIN 7.7 gm/dL (14.0-18.0); MCH 29.3 pg (26.0-34.0); MCHC 32.4 g/dL (28.0-37.0); MCV 90.5 fL (80.0-100.0); PLATELET COUNT 294 thou/uL (150-400); RBC 2.63 mil/uL (4.50-6.00); RDW 17.1 % (10.5-14.5); WBC 12.7 thou/uL (4.0-11.0)
[2020-12-12 05:56] LABS: ALBUMIN 1.9 g/dL (3.4-5.0); CALCIUM 7.8 mg/dL (8.5-10.1); CREATININE 0.3 mg/dL (0.7-1.3); MAGNESIUM 1.7 mg/dL (1.8-2.4); TOTAL BILIRUBIN 0.5 mg/dL (0.2-1.0); TOTAL PROTEIN 5.3 g/dL (6.4-8.2)
--- NOTE | 2020-12-12 06:00 | NUR ---
PT RESTING QUIETLY. BATHED. COCCYX WOUND CARE GIVEN, DAKINS WET TO DRY NPO FOR 10 AM COLOSTOMY INSERTION BY DR GONZALEZ VSS 1400 CC UO AND 100 CC LIQID STOOL FROM FMS. PROGRESSING TOWARD GOALS. REMAINS TRACHED AND VENTED
[2020-12-12 06:10] LABS: APTT 25.4 Seconds (24.5-32.8); PROTIME 10.9 Seconds (10.5-12.1)
[2020-12-12 08:42] LABS: ANISOCYTOSIS 1+; METAMYELOCYTES 4 %; MYELOCYTES 3 %
--- NOTE | 2020-12-12 12:27 | NUR ---
Discussed during unit rounds and los with the hospitalist. He going to surgery today for colostomy. trach/peg with vent support. FIO2 40%. Sent updates to [facility]. Will cont following as needed for dc needs.
--- NOTE | 2020-12-12 12:57 | NUR ---
ASSUMMED CARE OF THIS PATIENT AT 0700 TO DAY FROM THE NIGHT NURSE, BARRINGTON AVALOS. PATIENT NPO FOR THE OR. 1025 TO OR PER BED, ON PORTABLE MONITOR, ACCOMPANIED BY THE OR STAFF. 1225 RETURNED TO ROOM POST LAP COLOSTOMY. COLOSTOMY NOTED IN LLQ OF ABD. ATTACHED TO CARDIAC, O2 SAT AND BP MONITORS AND PLACED BACK ON THE VENT WITH PREVIOUS SETTINGS.
--- NOTE | 2020-12-12 19:37 | NUR ---
PATIENT IS SLOWLY PROGRESSING TOWARDS OUTCOME GOALS. PLEASE REFER TO ASSESSMENTS.
[2020-12-13] VITALS (24 sets, daily range): BP systolic 115–148; BP diastolic 39–71
--- NOTE | 2020-12-13 06:00 | NUR ---
REMAINS TRACHED AND VENTED FIO2 40 % MOUTHING WORDS. SLEPT AT INTERVALS TONIGHT. FENTANYL GTT AT 75 MCG COCCYX WOUND DRESSING CHANGED EARLIER DAKINS SOLUTION WET TO DRY. SLOWLY PROGRESSING TOWARD GOALS
--- NOTE | 2020-12-13 06:00 | NUR ---
COLOSTOMY DRAINING A SMALL AMT BLOODY LIQUID STOMA PINK
--- NOTE | 2020-12-13 10:33 | NUR ---
PT AWAKE AND ALERT THIS AM. NOT EXPRESSING ANY CONERNS AT THIS TIME. PT PAIN AT A 5/10 ON FENT GTT. PT ON CPAP MODE, SATTING >95% AND NO COMPLAINTS OF SOB. WILL CONTINUE TO MONITOR AND PROGRESS TOWARDS POC.
--- NOTE | 2020-12-13 11:16 | NUR ---
[facility] restarted auth again yesterday. Discussed during los with the hospitalist ready to dc when get auth from [facility].
[2020-12-13 11:42] LABS: BE(vivo) 9.5 mmol/L (-2 to +3); HCO3 34.4 mmol/L (22.0-26.0); PCO2 49.5 mmHg (35.0-45.0); PO2 62.3 mmHg (80.0-100.0); sO2 92.7 % (92.0-98.0)
[2020-12-14] VITALS (24 sets, daily range): BP systolic 119–172; BP diastolic 42–70
--- NOTE | 2020-12-14 05:32 | NUR ---
NO SIGNIFICANT CHANGES DURING THE NIGHT. PT C/O PAIN IN HIS BACK AND SCARUM. FENTANYL DRIP INFUSING. 2 PRN DOSES OF FENTANYL GIVEN WELL, WITH SOME RELIEF. VSS. AFEBRILE. TOLERATING VENT WELL. PT SLEPT MOST OF THE NIGHT. SANGUINEOUS DRAINAGE NOTED FROM COLOSTOMY. NO STOOL YET. TF VIA PEG TUBE. TF RESIDUALS LESS THAN 100ML ALL SHIFT. WOUND VAC INTACT TO SCARAL WOUND. WOUND VAC CANISTER CHANGED DUE TO BECOMING FULL. PROGRESSING SLOWLY TOWARD POC GOALS. WILL GIVE REPORT TO ONCOMING NURSE.
--- NOTE | 2020-12-14 11:03 | NUR ---
[facility] requesting more clinical r/t [facility] asking for auth. Passed in information to MD's and bedside nurse.
[2020-12-14 12:53] LABS: HEMATOCRIT 22.7 % (42.0-52.0); HEMOGLOBIN 7.6 gm/dL (14.0-18.0); MCH 30.5 pg (26.0-34.0); MCHC 33.6 g/dL (28.0-37.0); MCV 90.9 fL (80.0-100.0); RBC 2.5 mil/uL (4.50-6.00); RDW 18.1 % (10.5-14.5); WBC 14.9 thou/uL (4.0-11.0)
--- NOTE | 2020-12-14 12:56 | NUR ---
PT CALM AND COOPERATIVE THIS AM. PT A/O X 4. TALKED TO TRAINING REPRESENTATIVE ABOUT PT LEAVING FOR LTAC. PT WEANED OFF FENT GTT AND TURNED OFF AT 1230. RN PHAN LABS NEEDED FOR PT TO LEAVE TO GO TO LTAC. RN SPOKE WITH DR GONZALEZ REGARDING PT COLOSTOMY. COLOSTOMY NOT PRODUCING STOOL YET. DR GONZALEZ WOULD LIKE TO REMOVE EDUARD IF PT LEAVE FOR LTAC TODAY, IF NOT THEN LEAVE EDUARD IN. WILL CONTINUE TO MONITOR. PT SLOWLY PROGRESSING TOWARDS CARE.
[2020-12-14 13:14] LABS: CALCIUM 7.7 mg/dL (8.5-10.1); CREATININE 0.3 mg/dL (0.7-1.3); MAGNESIUM 1.6 mg/dL (1.8-2.4); POTASSIUM 3.1 mmol/L (3.5-5.1)
[2020-12-15] VITALS (24 sets, daily range): BP systolic 127–165; BP diastolic 51–94
--- NOTE | 2020-12-15 13:28 | NUR ---
Olena, present several hours this am providing support to pt. she stated that his son was getting on Saturday, 12/17 and that she would not be here for the next 2 days.
--- NOTE | 2020-12-15 14:21 | 2DMMODE ---
[facility] [place] [address] 2 D/M-MODE ECHOCARDIOGRAM Name: DARELL KNIGHT Room #: 243-P ADM IN M.R.#: [id number] Admission: 12/02/20 Attend Phys: Regis Youssef MD Discharge: Date of : 63 Report #: [id number] THIS REPORT FOR: cc: FAM - No family physician/PCP FAM - No family physician/PCP Ambrosio Dobson MD [facility] ~ APPROVED REPORT Study performed: 12/15/2020 13:29:27 EXAM: Comprehensive 2D, Doppler, and color-flow Echocardiogram Patient Location: ICU Room #: 243 Status: routine BSA: 2.17 HR: 62 bpm BP: 142/61 mmHg Rhythm: NSR Other Information Study Quality: Good/on vent Indications Multiple co-morbidities, cardiac arrest on 12/02/20. Hx: COVID 2D Dimensions RVDd: 35.62 mm IVSd: 13.62 (7-11mm) LVOT Diam: 23.47 (18-24mm) LVDd: 53.76 mm PWd: 11.76 (7-11mm) Ascending Ao: 36.53 (22-36mm) LVDs: 31.41 (25-40mm) Left Atrium: 40.78 (27-40mm) Aortic Root: 40.07 mm Volumes Left Atrial Volume (Systole) Single Plane 4CH: 73.93 mL Single Plane 2CH: 126.49 mL LA ESV Index: 48.00 mL/m2 Aortic Valve AoV Peak Armaan.: 1.77 m/s AO Peak Gr.: 12.51 mmHg LVOT Max P.33 mmHg LVOT Max V: 1.26 m/s [facility] [address] [address] 2 D/M-MODE ECHOCARDIOGRAM Name: EUGENEDARELL Room #: 243-P [facility] IN .R.#: [id number] Admission: 12/02/20 Attend Phys: Regis Youssef MD Discharge: Date of : 63 Report #: [id number] JAISON Vmax: 3.08 cm2 Mitral Valve E/A Ratio: 1.9 MV Decel. Time: 203.00 ms MV E Max Armaan.: 1.05 m/s MV A Armaan.: 0.55 m/s MV PHT: 58.87 ms IVRT: 86.51 ms Pulmonary Valve PV Peak Armaan.: 1.29 m/s PV Peak Gr.: 6.67 mmHg Pulmonary Vein P Vein S: 0.61 m/s P Vein D: 0.36 m/s P Vein S/D Ratio: 1.69 Tricuspid Valve TR Peak Armaan.: 3.62 m/s RAP Estimate: 10.00 mmHg TR Peak Gr.: 52.49 mmHg PA Pressure: 62.00 mmHg Left Ventricle The left ventricle is normal size. Mild concentric left ventricular hypertrophy. Left ventricular systolic function is normal. LVEF is 60-65%. Left ventricular filling pattern is normal for age. Right Ventricle The right ventricle is normal size. The right ventricular systolic function is normal. Atria Left atrium is dilated. The right atrium size is normal. Aortic Valve The aortic valve is normal in structure. No aortic regurgitation is present. There is no aortic valvular stenosis. Mitral Valve The mitral valve is normal in structure. Trace mitral regurgitation. No evidence of mitral valve stenosis. Tricuspid Valve The tricuspid valve is normal in structure. Mild tricuspid regurgitation. Estimated PAP is 60mmHg. [facility] [address] [place] [address] 2 D/M-MODE ECHOCARDIOGRAM Name: DARELL KNIGHT Room #: 243-P ADM IN M.R.#: [id number] Admission: 12/02/20 Attend Phys: Regis Youssef MD Discharge: Date of : 63 Report #: [id number] Pulmonic Valve The pulmonary valve is normal in structure. Mild pulmonic regurgitation. Great Vessels The sinuses are mildly dilated at 4.0cm. IVC is normal in size and collapses <50% with inspiration. Pericardium There is no pericardial effusion. <Conclusion> The left ventricle is normal size. Mild concentric left ventricular hypertrophy. LVEF is 60-65%. The right ventricle is normal size. Left atrium is dilated. The aortic valve is normal in structure. No aortic regurgitation is present. Mild tricuspid regurgitation. Estimated PAP is 60mmHg. The sinuses are mildly dilated at 4.0cm. There is no pericardial effusion. <ELECTRONICALLY SIGNED> By: Ambrosio Dobson MD, FACC 12/15/201419 19 19 Ambrosio Dobson MD, FACC /INF
--- NOTE | 2020-12-15 17:00 | NUR ---
Olena, present, then friend from work present. see [facility] for fent administration. pt moved to another bed with 6 assist, well tolerated.
[2020-12-16] VITALS (79 sets, daily range): BP systolic 56–152; BP diastolic 26–82
--- NOTE | 2020-12-16 04:59 | NUR ---
ASSUMED CARE AT 1900. PT C/O SIGNIFICANT PAIN IN SACRAL WOUND REGION AND ASKS FOR FENTANYL SPECIFICALLY, DOESN'T WANT TO USE PAIN MEDS PER TUBE; EDUCATED AT LENGTH ABOUT CHANGING FROM IV TO PO/TUBE MEDS AND GETTING IN A ROUTINE TO GET AHEAD OF THE PAIN RATHER THAN RELYING ON IVP. PT UNDERSTOOD BUT STILL DISSAPOINTED; PT MAY NEED PAIN MEDS ADJUSTED TO A HIGHER DOSE OR MORE FREQ DOSE, POSSIBLY ADDING A LONG-ACTING VERSION WELL TO HELP WITH PAIN CONTROL. PT WOULD ALSO BENEFIT FROM A PSYCH CONSULT R/T DEPRESSION FROM HIS LONG-TERM HOSPITALIZATION AND LOSS OF BODILY FUNCTION. PERFORMED PASSIVE ROM ON LEGS AND ARMS WITH EACH ASSESSMENT AND ENCOURAGED PT TO BE MOVING HIS HANDS AND FEET REGULARLY, EVERY LITTLE BIT OF ACTIVITY HE CAN DO HIMSELF WILL BE BENEFICIAL. START OF SHIFT, AFTER DOING A FULL TURN W/LINEN CHANGES, COLOSTOMY BURPED A SIGNIFICANT AMOUNT OF AIR FOR FIRST TIME AND PT HAD ACTIVE BOWEL SOUNDS, HOWEVER HE DID C/O FEELING BLOATED/GASSY, AND HAD A 275 ML RESIDUAL, ONLY FLUSHED ABOUT 80 ML BACK IN D/T IT FEELING UNCOMFORTABLE. BY THIS AM, BOWEL SOUNDS WERE VERY QUIET, ONLY A TINKLING/HOLLOW NOISE AUDIBLE, CONTINUES TO HAVE RESIDUALS NEAR 300, AND C/O FEELING FULL AND BLOATED; COLOSTOMY DID NOT RELEASE ANY MORE GAS AND PRODUCED NO STOOL. DECREASED TF TO 30 ML/HR AND NOTIFIED OVERNIGHT SPANISH SPEAKING NANNY ASKING FOR A ROUTINE KUB. SLOW PROGRESSION TOWARD GOALS, WILL CONTINUE TO MONITOR.
[2020-12-16 05:05] LABS: ABSOLUTE NEUTROPHILS 13.5 thou/uL (1.4-8.2); BASOPHILS 0.2 % (0.0-2.0); EOSINOPHILS 0.3 % (0.0-3.0); HEMATOCRIT 24.1 % (42.0-52.0); HEMOGLOBIN 7.9 gm/dL (14.0-18.0); LYMPHOCYTES 5.3 % (24.0-44.0); MCH 29.7 pg (26.0-34.0); MCHC 32.8 g/dL (28.0-37.0); MCV 90.6 fL (80.0-100.0); MONOCYTES 8.2 % (1.0-8.0); PLATELET COUNT 282 thou/uL (150-400); RBC 2.66 mil/uL (4.50-6.00); RDW 17.8 % (10.5-14.5); WBC 15.7 thou/uL (4.0-11.0)
[2020-12-16 05:16] LABS: ALBUMIN 1.9 g/dL (3.4-5.0); CREATININE 0.2 mg/dL (0.7-1.3); MAGNESIUM 1.7 mg/dL (1.8-2.4); PHOSPHORUS 2.9 mg/dL (2.5-4.9); POTASSIUM 3.2 mmol/L (3.5-5.1); TOTAL BILIRUBIN 0.3 mg/dL (0.2-1.0); TOTAL PROTEIN 5.4 g/dL (6.4-8.2)
--- NOTE | 2020-12-16 08:47 | NUR ---
Discussed during unit rounds and los with the hospitalist. Out of isolation for covid. KUB ordered for today. trach, with vent support. Peg for nutritional support. at bedside. No anticipated dc, and no anticipated dc over the weekend. Will cont. following as needed. [employer] wanting to see that he has had a bm since his colostomy was placed.
--- NOTE | 2020-12-16 09:15 | HC ---
[facility] [place] [address] CONSULTATION Name: DARELL KNIGHT Room #: 243-P ADM IN M.R.#: [id number] Admission: 12/02/20 Attend Phys: Regis Youssef MD Discharge: Date of : 63 Report #: [id number] THIS REPORT FOR: cc: YUMIKO - No family physician/PCP YUMIKO - No family physician/PCP Justino Linares MD ~ DATE OF SERVICE: 12/15/2020 INFECTIOUS DISEASE CONSULTATION ATTENDING PHYSICIAN: Dr. Warren. REASON FOR EVALUATION: Deep seated infection involving a sacral decubitus ulcer, extends down to the bone as well as recent MRSA bloodstream infection. HISTORY OF PRESENT ILLNESS: Chart reviewed. The patient was examined. This is a 55-year-old with a complex medical course over the last 2-3 months, who was diagnosed with COVID-19 infection. This was complicated by pneumonitis, chronic respiratory failure with right-sided pneumothorax. While hospitalized, he did require tracheostomy and PEG placement, developed a sacral decubitus ulcer as well. He has been transferred to acute long-term care facility where he clinically deteriorated with increased respiratory distress. He was transferred to [facility] for a short period of time, experienced a cardiopulmonary arrest. He was resuscitated and it was felt to be secondary to dysfunctional tracheostomy. This was corrected. He has undergone additional procedures including sacral decubitus ulcer debridement as well as a diverting colostomy. Initial evaluation was undertaken including blood cultures and at that time 03/12 with growth of MRSA. Urine had Francesca parapsilosis. Debridement on 12/07/2020. Had polymicrobial growth including pseudomonas as well as Francesca species. He has been on a combination of antibiotics including linezolid, which was discontinued on 12/12/2020, fluconazole as well and cefepime, which is continued. He admits to generalized pain, in particular a question of sacral pain as well. He is maintained on ventilatory support via tracheostomy. FiO2 of 40%. He is conversant. He is receiving enteral feedings. ALLERGIES: None known. CURRENT MEDICATIONS: As described above, cefepime, famotidine, amiodarone, insulin glargine, insulin lispro, oxycodone. PAST MEDICAL HISTORY: As described above, recent COVID-19 infection complicated by severe pneumonitis, chronic respiratory failure with right pneumothorax, underlying COPD, atrial fibrillation, diabetes mellitus, severe protein-calorie malnutrition. SOCIAL HISTORY: He is , disabled. [facility] [address] [place] [address] CONSULTATION Name: DARELL KNIGHT Room #: 243-P [facility] [place] .R.#: [id number] Admission: 12/02/20 Attend Phys: Regis Youssef MD Discharge: Date of : 63 Report #: [id number] FAMILY HISTORY: Noncontributory. REVIEW OF SYSTEMS: Otherwise, unremarkable 10-point review of systems. PHYSICAL EXAMINATION: GENERAL: He is alert, in moderate distress, appears to be tracking well. He is supine, maintained on ventilatory support via tracheostomy. VITAL SIGNS: Afebrile, pulse 61, respirations 19, blood pressure 142/61. SKIN: Warm, dry, no rashes. HEENT: Normocephalic. Extraocular muscles intact. NECK: Tracheostomy in place. LUNGS: Bilateral few scattered coarse breath sounds. HEART: Borderline bradycardic. I do not appreciate a murmur. ABDOMEN: Mildly distended, soft, no apparent tenderness. There is a left lower quadrant colostomy in place and enteral feeding tube. GENITOURINARY AND RECTAL: Deferred. LABORATORY DATA: Electrolytes recently, sodium 144, potassium 3.1, chloride 98, bicarbonate is 34, anion gap of 2, BUN and creatinine 19 and 0.3, glucose of 243. CBC: White count of 14.9, H and H 7.6 and 22.7, platelets of 242. ABGs from yesterday, pH 7.151, pCO2 of 56.4, pO2 of 75.5, that are initial ABGs. Most recent ABGs: pH 7.460, pCO2 of 49.5, pO2 of 62.3 on 40%. Review of cultures obtained during this hospitalization and 1/2 blood cultures are positive for MRSA on 12/01/2020. Urine culture with Francesca parapsilosis on 12/01/2020. Operative cultures, sacral bone, polymicrobial growth including pseudomonas as well as Francesca parapsilosis and Francesca tropicalis and bacteroides. ASSESSMENT AND PLAN: Sacral osteomyelitis, polymicrobial growth. I think we should extend the antifungal and restart micafungin and continue wound care as prescribed, with offloading. We will optimize the nutritional status. Secondly with positive blood culture, had received up to 10 days of therapy. We will repeat blood cultures off antibiotics in this setting. If he would clinically deteriorate, we would likely restart therapy and cover MRSA as well. At this point, he is not overtly toxic, although ____ generally not pursue any pain that appears out of proportion. Continue efforts to wean off support. <ELECTRONICALLY SIGNED> By: Justino Linares MD 12/16/20 0915 1321 0033 Justino Linares MD /nt
--- NOTE | 2020-12-16 11:28 | NUR ---
WOUND CARE F/U; THE PATIENTS SACRAL STAGE 4 WOUND WAS ASSESSED TODAY. THE WOUND HAS NOT BEEN PROGRESSING WELL EXPECTED. MORE DEBRIDEMENT IS REQUIRED. TODAY WE PUT A NS MOIST GAUZE,ABD FOR NOW AWAITING DAKINS SOLUTION. RN PRESENT
--- NOTE | 2020-12-16 12:15 | NUR ---
report given to OR crew. OR crew transferred pt to surgery via icu bed on groundwater monitoring technician.
[2020-12-16 12:51] LABS: MAGNESIUM 1.9 mg/dL (1.8-2.4)
[2020-12-16 12:55] LABS: POTASSIUM 4.2 mmol/L (3.5-5.1)
--- NOTE | 2020-12-16 13:30 | NUR ---
report received from OR crew, total of fentanyl 100mcg given during/after procedure. replaced on vent on icu arrival. sacral dressing dry/intact.
--- NOTE | 2020-12-16 14:23 | NUR ---
notified Adriel Salazar, wound care of surgical crew report to this RN of pt not tolerating laying on his side related to trach positioning and desating. resolved with turning. original surgical dressing intact.
--- NOTE | 2020-12-16 16:45 | NUR ---
report previously called to ROBBIE Alejandra. received in icu #246 pneumothorax with elevated resp- 32-38 with resp distress at rest. on optiflow- 100% with 40L/nc. pt sat up in bed as soon as possible. changed out the pleural chest tube with continued large air leak, -40 suction to chest tube, flucuation of "orange" bellow vasicilates with each breath above and below arrow.,
[2020-12-16 17:47] LABS: HEMATOCRIT 21.7 % (42.0-52.0); MCH 29.3 pg (26.0-34.0); MCHC 32.4 g/dL (28.0-37.0); MCV 90.5 fL (80.0-100.0); RBC 2.4 mil/uL (4.50-6.00); RDW 17.9 % (10.5-14.5); WBC 23.3 thou/uL (4.0-11.0)
--- NOTE | 2020-12-16 17:47 | NUR ---
AT APPROX 1630 THIS AFTERNOON PT HAD PELVIC ULTRASOUND PERFORMED ON PELVIS TO EXAMINE BLOOD FLOW TO THE REGION. AT APPROX 1710 RN NOTICED PATIENT BLOOD PRESSURE HAD DROPPED TO 70 SYSTOLIC, RN RECHECKED BP, NOTICED PT WAS CLAMMY, TOOK HIS TEMPERATURE AND REMOVE BLANKET LAYING OVER PT AND NOTICED THAT PT HAD A LARGE POOL OF BLOOD IN BETWEEN HIS LEGS. NURSING STAFF IMMEDIATELY NOTIFIED DR. MUSA. NACL FLUID BOLUS STARTED WITH PRESSURE BAG IN PT CENTRAL LINE TO HELP BRING B/P BACK UP. ON DR. MUSA ARRIVAL WE TURNED PATIENT AND NOTICED THAT UNDERNEATH HIS LARGE PRESSURE WOUND DRESSING PT WAS BLEEDING. APPLIED PRESSURE THE WOUND, PLACED SURGICEL DRESSING AND A COUPLE SUTURES TO STOP THE BLEEDING. PT BLOOD TYPE AND SCREEN ALONG WITH LABS ALSO DRAWN AT THIS TIME. LEVOPHED STARTED ON THE PATIENT TO ASSIST IN RAISING BLOOD PRESSURE. BLEEDING APPEARS TO BE UNDER CONTROL AT THIS TIME. WILL CONTINUE TO MONITOR SITE, VITAL SIGNS AND MEDICATIONS.
[2020-12-16 18:02] LABS: CALCIUM 7.8 mg/dL (8.5-10.1); CREATININE 0.3 mg/dL (0.7-1.3); POTASSIUM 4.5 mmol/L (3.5-5.1)
[2020-12-16 18:05] LABS: APTT 27.1 Seconds (24.5-32.8); INR 0.95; PROTIME 10.4 Seconds (10.5-12.1)
[2020-12-17] VITALS (70 sets, daily range): BP systolic 101–140; BP diastolic 46–74
[2020-12-17 00:54] LABS: HEMATOCRIT 23.5 % (42.0-52.0); HEMOGLOBIN 7.6 gm/dL (14.0-18.0)
[2020-12-17 03:55] LABS: ALBUMIN 1.9 g/dL (3.4-5.0); CALCIUM 7.2 mg/dL (8.5-10.1); CREATININE 0.3 mg/dL (0.7-1.3); MAGNESIUM 1.9 mg/dL (1.8-2.4); PHOSPHORUS 3.8 mg/dL (2.5-4.9); POTASSIUM 4.1 mmol/L (3.5-5.1); TOTAL BILIRUBIN 0.7 mg/dL (0.2-1.0); TOTAL PROTEIN 4.8 g/dL (6.4-8.2)
--- NOTE | 2020-12-17 05:44 | NUR ---
PT COCCYX WOUND STARTED BLEEDING AGAIN OVERNIGHT. 3 PRBC AND [address] GONZALEZ ADDED SUTURES AND PACKING TO WOUND SITE. NO NEW BLEEDING SINCE REPACKING OF WOUND HAS BEEN NOTED. PT STILL ON LOW DOSE LEVOPHED. PAIN CONTROL STILL AN ONGOING ISSUE.
--- NOTE | 2020-12-17 12:14 | NUR ---
Dr. Woods present this am, updated. Dr. Murillo present this am, updated with pt currently on cpap and fentanyl iv given per pt request (see mars). remains supine to promote clotthing/hemostasis.
--- NOTE | 2020-12-17 17:21 | NUR ---
ASSUMED CARE OF PATIENT AT 0600. VENTILATOR SETTINGS AT THE BEGINNING OF THE SHIFT WAS 20/450/.40 +5. AT 0754 I PLACED THE PATIENT ON CPAP PER DOCTORS ORDERS OF /5 40%. HE HAS GOTTEN ALL OF HIS TREATMENTS AND HAS BEEN SLEEPING MOST OF THE DAY. NO DISTRESS NOTED.
--- NOTE | 2020-12-17 19:45 | NUR ---
rested quietly, pain meds given when requested, see mars. levo titrated off. no bleeding from wound. to remain on back for 24 hrs to decrease potential bleeding per Dr. Figueroa. tube feeding restarted at 10cc/hr per Dr. Figueroa.
[2020-12-17 20:13] LABS: HEMATOCRIT 20.9 % (42.0-52.0)
[2020-12-18] VITALS (33 sets, daily range): BP systolic 103–139; BP diastolic 52–70
--- NOTE | 2020-12-18 06:00 | NUR ---
REMAINS TRACHED AND VENTED. AWAKE AND ALERT MOUTHING WORDS. COCCYX WOUND DRESSING INTACT BUT SATURATED. HGB 7.0 AT 1930 ONE UNIT PACKED CELLS TX THIS AM HGB 8.2 PROGRESSING SLOWLY TOWARD GOALS
[2020-12-18 08:17] LABS: ABSOLUTE NEUTROPHILS 8.7 thou/uL (1.4-8.2); BASOPHILS 0.2 % (0.0-2.0); EOSINOPHILS 0.5 % (0.0-3.0); HEMATOCRIT 24.4 % (42.0-52.0); HEMOGLOBIN 8.2 gm/dL (14.0-18.0); LYMPHOCYTES 10.7 % (24.0-44.0); MCH 29.7 pg (26.0-34.0); MCHC 33.8 g/dL (28.0-37.0); MCV 87.9 fL (80.0-100.0); MONOCYTES 9.2 % (1.0-8.0); POLYS 79.4 % (36.0-66.0); RBC 2.77 mil/uL (4.50-6.00); WBC 10.9 thou/uL (4.0-11.0)
[2020-12-18 08:28] LABS: PLATELET COUNT 178 thou/uL (150-400)
[2020-12-18 08:33] LABS: CALCIUM 7.8 mg/dL (8.5-10.1); CREATININE 0.3 mg/dL (0.7-1.3); MAGNESIUM 1.7 mg/dL (1.8-2.4); PHOSPHORUS 3.2 mg/dL (2.6-4.7)
[2020-12-18 08:40] LABS: POTASSIUM 2.6 mmol/L (3.5-5.1)
[2020-12-18 10:02] LABS: BE(vivo) 7.3 mmol/L (-2 to +3); HCO3 33.7 mmol/L (22.0-26.0); PCO2 56.1 mmHg (35.0-45.0); PO2 60.5 mmHg (80.0-100.0); pH 7.396 (7.360-7.450); sO2 90.6 % (92.0-98.0)
[2020-12-18 18:52] LABS: ALBUMIN 1.9 g/dL (3.4-5.0); CALCIUM 7.7 mg/dL (8.5-10.1); CREATININE 0.3 mg/dL (0.7-1.3); POTASSIUM 3.4 mmol/L (3.5-5.1); TOTAL BILIRUBIN 0.3 mg/dL (0.2-1.0); TOTAL PROTEIN 4.7 g/dL (6.4-8.2)
[2020-12-19] VITALS (25 sets, daily range): BP systolic 86–133; BP diastolic 35–58
--- NOTE | 2020-12-19 06:00 | NUR ---
REMAINS TRACHED AND VENTED MOUTHING WORDS 1000 CC LIQUID STOOL FROM COLOSTOMY AND ONE LITER OF URINE TONIGHT. COCCYX WOUND DRESSING IS SATURATED DOCTORS TO CHANGE DRESSING TODAY. PAIN MEDS GIVEN Q 4 HRS PRT PT REQUEST. COMPLETE BATHJ AN D LINEN CHANGE DONE. PROGRESSING TOWARD GOALS
[2020-12-19 07:19] LABS: ABSOLUTE NEUTROPHILS 8.4 thou/uL (1.4-8.2); BASOPHILS 0.3 % (0.0-2.0); EOSINOPHILS 0.3 % (0.0-3.0); HEMATOCRIT 23.8 % (42.0-52.0); HEMOGLOBIN 8.1 gm/dL (14.0-18.0); LYMPHOCYTES 8.9 % (24.0-44.0); MCH 29.7 pg (26.0-34.0); MCHC 33.9 g/dL (28.0-37.0); MCV 87.6 fL (80.0-100.0); MONOCYTES 7.4 % (1.0-8.0); PLATELET COUNT 162 thou/uL (150-400); POLYS 83.1 % (36.0-66.0); RBC 2.72 mil/uL (4.50-6.00); RDW 15.7 % (10.5-14.5); WBC 10.1 thou/uL (4.0-11.0)
[2020-12-19 07:45] LABS: MAGNESIUM 1.7 mg/dL (1.8-2.4); PHOSPHORUS 3.1 mg/dL (2.6-4.7)
[2020-12-19 07:46] LABS: ALBUMIN 1.8 g/dL (3.4-5.0); CREATININE 0.3 mg/dL (0.7-1.3); TOTAL BILIRUBIN 0.3 mg/dL (0.2-1.0); TOTAL PROTEIN 4.8 g/dL (6.4-8.2)
[2020-12-19 08:02] LABS: POTASSIUM 2.8 mmol/L (3.5-5.1)
[2020-12-19] MEDS ORDERED: PEPCID20 MG PER TUBE (11:47)
[2020-12-19] MEDS ORDERED: MELATONIN5 M1 PO (11:47)
[2020-12-19] MEDS ORDERED: LANTUS SUBQ (11:47)
[2020-12-19] MEDS ORDERED: DEXAMETHASO0.1 MG/M1 IV PUSH (11:47)
[2020-12-19] MEDS ORDERED: MEROPENEM1 GM IV (11:47)
[2020-12-19] MEDS ORDERED: METOCLOPRAM5 MG/1 ML IV PUSH (11:47)
[2020-12-19] MEDS ORDERED: MICAFUNGIN100 MG IV (11:47)
--- NOTE | 2020-12-19 14:29 | NUR ---
Per MD review in AM LOS meeting patient is medically stable for discharge to LT[facility]. Per [facility] authorization is still intact; however they are unable to accept today due to staffing limitations. Attending and nurse notified and CM continue to follow.
--- NOTE | 2020-12-19 18:37 | NUR ---
ASSUMED PATIENT CARE AT 0700. A/O X4. NO RESIDUAL NOTED FROM PEG. BROWN LIQUID STOOL FROM OSTOMY. COCCYX DRESSING CHANGED PER DR SEYMOUR. SLOWLY TOWARDS POC GOALS.
[2020-12-20] VITALS (30 sets, daily range): BP systolic 105–136; BP diastolic 50–67
--- NOTE | 2020-12-20 03:08 | NUR ---
PT HAS BEEN ON VENT WITH 60% FIO2 DURING THE NIGHT. MINIMAL TRACHEAL SECRETIONS NOTED. BP STABLE. AFEBRILE. PT C/O PAIN IN BACK AND SACRAL WOUND. PRN PAIN MEDICATIONS GIVEN WITH SOME TEMPORARY RELIEF. PT DOES NOT LIKE TO BE REPOSITIONED OFTEN; ENCOURAGED PT TO ALLOW REPOSITIONING TO PREVENT FURTHER SKIN BREAKDOWN. TF VIA PEG TUBE; TF INFUSING AT GOAL RATE WITH MINIMAL RESIDUALS NOTED. BUCHANAN TO DD WITH ADEQUATE URINE OUTPUT. PT SLEEPING AT THIS TIME. PROGRESSING SLOWLY TOWARD POC GOALS. WILL MONITOR FURTHER.
[2020-12-20 05:35] LABS: CREATININE 0.2 mg/dL (0.7-1.3); MAGNESIUM 1.5 mg/dL (1.8-2.4); PHOSPHORUS 2.5 mg/dL (2.5-4.9); POTASSIUM 3.2 mmol/L (3.5-5.1)
--- NOTE | 2020-12-20 09:06 | NUR ---
faxed updates to [facility]. kcfd form on front of chart.
--- NOTE | 2020-12-20 12:36 | NUR ---
Per MD review in AM LOS meeting patient is medically stable for discharge to LT[facility]. Per [facility] authorization is still intact; however [facility] was unable to accept yesterday due to staffing limitations. As of today per the attending the patient remains able to transfer and CM has sent updates to [facility] and completed a KCF[employer] form which is now on the front of the chart, and a copy of the chart has been requested. CM has a call out to [facility] as of today as of 10:25 to see if able to accept today. CM will follow for anticipated discharge to [facility] today and will notify unit once [facility] returns a call and updates if able to accept today.
[2020-12-20 14:54] LABS: MAGNESIUM 1.7 mg/dL (1.8-2.4); POTASSIUM 3.8 mmol/L (3.5-5.1)
--- NOTE | 2020-12-20 15:47 | NUR ---
AT 1540 PT WOUND WAS EXAMINED AFTER WOUND CARE TEAM VISIT AND TO ASSESS FOR BLEEDING. PT BLEEDING BRIGHT RED BLOOD WITH CLOTS PRESENT. ORIGINAL DRESSING LEFT IN PLACE FOR SURGEON TO WITNESS, PAD ALSO SAVED FOR DR TO WITNESS. DR. MUSA NOTIFIED AND WILL BE RESPONDING WHEN ABLE. WILL CONTINUE TO MONITOR AND REASSESS SITE/BLEEDING. WILL NOT BE TURNING PATIENT UNTIL DR CLEARED DUE TO HIGH RISK OF CONTINUING TO BLEED AND RUPTURE OF PREVIOUS SUTURES. WILL FOLLOW NURSING POC.
[2020-12-20 17:39] LABS: HEMATOCRIT 24.6 % (42.0-52.0); HEMOGLOBIN 7.9 gm/dL (14.0-18.0)
[2020-12-21] VITALS (35 sets, daily range): BP systolic 91–131; BP diastolic 48–68
--- NOTE | 2020-12-21 09:35 | NUR ---
[facility] notified cm that they have a bed today and can take him at 4pm. bedside nurse to call report to [phone].
[2020-12-21 15:37] LABS: HEMOGLOBIN 6.7 gm/dL (14.0-18.0)
[2020-12-21 15:40] LABS: HEMATOCRIT 19.9 % (42.0-52.0)
--- NOTE | 2020-12-21 16:52 | NUR ---
PT HAD NO EPISODES OF BLEEDING TODAY, PER DR. MUSA CONTINUE TO HOLD LOVENOX ON PATIENT AND NOT TO TURN THE PATIENT Q2 DUE TO HIGH RISK OF BLEEDING FROM PRESSURE INJURY SITE. NURSING STAFF CHANGED PT WOUND DRESSING TODAY WITH MINIMAL S/S OF DRIED BLOOD, WOUND DISCOLORED, PHOTOGRAPHS TAKEN, DRY STERILE KERLEX DRESSING REPLACED INSIDE THE WOUND, ABD PADS SECURED TO OUTSIDE TO HOLD DRESSING IN PLACE, SECURED WITH TAPE. WILL CONTINUE TO FOLLOW POC AND AWAIT FOR ORDERS TO DC PT TO REHAB FACILITY.
--- NOTE | 2020-12-22 00:05 | NUR ---
NOTIFIED AROUND 2100 FROM David HERNANDEZ AT [facility] THAT A BED HAD OPENED UP AND THEY WOULD BE ABLE TO ADMIT THIS PT THERE [facility]. CONNIE TIRADO NOTIFIED TO ENSURE PT WAS STILL ABLE TO DC TO [facility]. DUE TO HGB 6.7 CONNIE TIRADO REACHED OUT TO [facility] TO ENSURE THEY WERE STILL OKAY WITH THE ADMISSION. 1 U PRBC WAS ORDERED. TRANSMISSION SUPERVISOR NOTIFIED THAT PT WAS ACCEPTED TO [facility]. WAS NOTIFIED. REPORT WAS GIVEN TO ANNAMARIA AT [facility]. [facility] WAS AT BEDSIDE AT 2340. REPORT/VENT SETTINGS WERE GIVEN. PT WAS TRANSFERED TO [facility] AND PT WAS DC'D AT 2343.
--- NOTE | 2020-12-22 00:06 | PATH ---
[facility] [place] [address] PATHOLOGY RPT PROCEDURE Name: AMILCAR KNIGHT Room #: 243-P ADM IN M.R.#: [id number] Admission: 12/02/20 Date of : 63 Discharge: Report #: [id number] Path Case #: [id number] [facility] Accession Number: [id number] . 01 Material submitted: . vertebral column - SACRAL WOUND TISSUE. Modifiers: SACRUM . 01 Clinical history: . DEBRIDEMENT DECUBITUS ULCER SACRAL WOUND RESP FAILURE RULE OUT CALCIPHYLAXIS AND PYODERMA . 02 Diagnosis: Skin and fibroadipose tissue, sacrum, designated, "debridement decubitus ulcer": - Ulceration with marked tissue necrosis, acute and chronic inflammation, fat necrosis and hemorrhage consistent with debrided tissue of a chronic wound. There is no evidence of malignancy (see comment). . (ARIANA:alfa; 12/21/2020) QLM 12/21/2020 1632 Local . 02 Comment: There is no evidence within the tissue examined of calciphylaxis or pyoderma gangrenosum. . (SAS:mml; 12/21/2020) . 02 Electronically signed: . Eulalia Bose MD, Pathologist NPI- [id number] . 01 Gross description: . The specimen is received in formalin, labeled "Knight Amilcar, sacral wound tissue rule out calciphylaxis and pyoderma" and consists of a fatty irregular tissue (17.0 x 7.5 x 2.7 cm) which has been previously partially dyed blue. Sectioning reveals fatty cut surfaces and areas of fat necrosis and hemorrhage. No obvious calcifications are identified. Also received in the same container is an unoriented irregular skin excision (10.0 x 1.0 cm, excised to a depth of 0.8 cm). The epidermis is tenorio-pink, dusky and focally necrotic. Compounder Helper sections are submitted in A1-A5. (CHICK[facility]ANCH; 12/19/2020) DKA/DKA 12/19/2020 1122 Local . 02 Pathologist provided ICD-10: L89.159 [place] [address] PATHOLOGY RPT PROCEDURE Name: EUGENEAMILCAR Room #: 243-P ADM IN M.R.#: [id number] Admission: 12/02/20 Date of : 63 Discharge: Report #: [id number] Path Case #: [id number] . 02 [facility] [id number] Specimen Comment: A courtesy copy of this report has been sent to [phone], [phone] Specimen Comment: [id number] Specimen Comment: Report sent to / DR VASQUES Performed at: [address], [place] [id number] MD Pramod Sosa MD Phone: [phone] Performed at: [address], [place] [id number] MD Eulalia Bose MD Phone: [phone]
== END 2020-12-21 23:43 | DRG 853 ==
LOC: ER 13:26 → 2N 12-02 00:04 → ICU 12-02 00:04
PROVIDERS: Anesthesiology; Emergency Medicine; Family Medicine; Internal Medicine; Internal Medicine Pulmonary Disease; Nurse Practitioner Family; Pediatrics; Student in an Organized Health Care Education/Training Program; Surgery; ADMIT Internal Medicine; ATTEND Internal Medicine
PROC: 5A1955Z Respiratory Ventilation, Greater than 96 Consecutive Hours (ICD-10-PCS; principal; 2020-12-02)
PROC: 0B21XFZ Change Tracheostomy Device in Trachea, External Approach (ICD-10-PCS; 2020-12-04)
PROC: 0BB38ZX Excision of Right Main Bronchus, Via Natural or Artificial Opening Endoscopic, Diagnostic (ICD-10-PCS; 2020-12-04)
PROC: 0B9F8ZX Drainage of Right Lower Lung Lobe, Via Natural or Artificial Opening Endoscopic, Diagnostic (ICD-10-PCS; 2020-12-04)
PROC: 0B9F8ZZ Drainage of Right Lower Lung Lobe, Via Natural or Artificial Opening Endoscopic (ICD-10-PCS; 2020-12-04)
PROC: 0QBS0ZZ Excision of Coccyx, Open Approach (ICD-10-PCS; 2020-12-07)
PROC: 30233K1 Transfusion of Nonautologous Frozen Plasma into Peripheral Vein, Percutaneous Approach (ICD-10-PCS; 2020-12-07)
PROC: 0QB10ZZ Excision of Sacrum, Open Approach (ICD-10-PCS; 2020-12-07)
PROC: 30233N1 Transfusion of Nonautologous Red Blood Cells into Peripheral Vein, Percutaneous Approach (ICD-10-PCS; 2020-12-07)
PROC: 0D1N4Z4 Bypass Sigmoid Colon to Cutaneous, Percutaneous Endoscopic Approach (ICD-10-PCS; 2020-12-12)
DX: A41.9 Sepsis, unspecified organism (principal); L89.154 Pressure ulcer of sacral region, stage 4; J96.21 Acute and chronic respiratory failure with hypoxia; E43 Unspecified severe protein-calorie malnutrition; J69.0 Pneumonitis due to inhalation of food and vomit; J96.22 Acute and chronic respiratory failure with hypercapnia; J93.9 Pneumothorax, unspecified; G93.40 Encephalopathy, unspecified; J44.1 Chronic obstructive pulmonary disease with (acute) exacerbation; J44.0 Chronic obstructive pulmonary disease with (acute) lower respiratory infection; K94.23 Gastrostomy malfunction; Z20.822 Contact with and (suspected) exposure to COVID-19; Z68.33 Body mass index [BMI] 33.0-33.9, adult; Z90.49 Acquired absence of other specified parts of digestive tract; I48.91 Unspecified atrial fibrillation; Z79.01 Long term (current) use of anticoagulants; Z87.891 Personal history of nicotine dependence; E87.5 Hyperkalemia; N40.0 Benign prostatic hyperplasia without lower urinary tract symptoms; Z86.16 Personal history of COVID-19; Z86.14 Personal history of Methicillin resistant Staphylococcus aureus infection; K21.9 Gastro-esophageal reflux disease without esophagitis; L89.159 Pressure ulcer of sacral region, unspecified stage; D64.9 Anemia, unspecified; E11.65 Type 2 diabetes mellitus with hyperglycemia; Z79.4 Long term (current) use of insulin; I10 Essential (primary) hypertension
CPT/HCPCS: 10078; 10203; 50101; 50386; 50403; 50555; 52265; 53307; 53310; 54118; 56462; 56524; 56525; 56526; 56529; 57092; 57119; 57120; 57188; 57189; 58574; 58586; 58921; 62110; 62900; 65129; 85076